=== PATIENT | female | born 1980 | race Caucasian/White ===

== ENCOUNTER 2021-05-21 09:12 | Inpatient (IN) | payer SELFPAY ==
[2021-05-21] MEDS ORDERED: Ondansetron 4 MG/2 ML SDV IVPUSH PRN (09:58)
[2021-05-21] MEDS ORDERED: Sodium Chloride 0.9% 10 ML Syringe FLUSH PRN (09:58)
[2021-05-21] MEDS ORDERED: Nalbuphine 10 MG/1 ML Vial IVPUSH PRN (09:58)
[2021-05-21] MEDS ORDERED: Lactated Ringers 1,000 ML IV SCH (10:00)
[2021-05-21] MEDS ORDERED: Oxytocin/Lactated Ringers 10 UNIT/1,000 ML BAG IV SCH (10:00)
--- NOTE | 2021-05-21 10:50 | PCM.LDHP ---
L&D History of Present Illness - General Date of Service: 05/21/21 Admit Problem/Dx: Patient Status Order with Admit Dx/Problem 05/21/21 09:58 Patient Status [ADT] Routine Admission Diagnosis/Problem Admission Diagnosis/Problem 05/21/21 10:35 Modesta is a 40-year old 8 para 7-0-0-9 (2 sets of twins) female admitted on the a.m. of 05/21/2021 at 39-5/7 weeks gestational age with an ABEL of 2020 by LMP starting 08/16/2020. She began in active labor this a.m. Upon admission she is 7 to 8 cm dilated, 90% effaced, bulging bag of pathak, 0 station, anterior presentation, very soft cervix. Source of Information: Patient History Limitations: Reports: No Limitations - History of Present Illness Introduction:: Modesta is a 40-year old 8 para 7-0-0-9 (2 sets of twins) female admitted on the a.m. of 05/21/2021 at 39-5/7 weeks gestational age with an ABEL of 05/23/2021 by LMP starting 08/16/2020. She began in active labor this a.m. Upon admission she is 7 to 8 cm dilated, 90% effaced, bulging bag of pathak, 0 station, anterior presentation, very soft cervix. Heart tones are reassuring. Contractions every 2 to 3 minutes. Patient desires to do natural labor. She is okay with AROM and this is accomplished with resultant clear amniotic fluid. 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 All babies have been born near term. Ranging from 38-4/7 weeks to 41-0/7 weeks. All baby's been born vaginally. No anesthesia used with any of the labors. history: Patient was first seen at 13-2/7 weeks gestational age and was seen on an occasional basis with the total number of visits at 6. She has had normal vital signs throughout the course. Fundal height growth has been appropriate and weight gain has been approximately 25 to 30 pounds. On last evaluation on 05/11/2021 at 38-2/7 weeks gestational age she was 3.5 cm dilated, 80% effaced, -2 station. Risk factors for the include the following: Grand multiparity, advanced maternal age, history of multiple comorbidities including history of malignant hyperthermia, history of non- Hodgkin's lymphoma status post chemotherapy, lower extremity varicosities, history of allergy to penicillin, history of blood transfusions. Last Tdap on record given 02/11/2019. Laboratory testing in shows blood to be a positive, antibody screen at first visit was negative. First laboratory testing done 11/17/2020 showed a hemoglobin of 13.1 g/dL and platelets at 226,000. She is rubella immune. RPR was nonreactive. IgG and IgM syphilis titers were nonreactive. Hepatitis B surface antigen nonreactive. Second trimester hemoglobin was 12.0 g/dL and platelets were 207,000. Her 1 hour GTT was 112 mg/dL. Antibody screen at that time was negative. Group B strep screen was not detected. Allergies: 1. Iodinated contrast media 2. Penicillin 3. Succinylcholine Medications: 1. vitamins 1 daily Past medical history: 1. Non-Hodgkin's lymphoma 1999treated with chemotherapy 2. History of anemia 3. History of varicose veins 4. History of transfusions 5. History of multiple gestations with vaginal delivery of 9 infants (2 sets of twins) 6. History of malignant hyperthermia 7. History of allergy to penicillin Past surgical history: 1. Laparoscopic [id number] 2. Biopsy lymph node right [id number] 3. Biopsy lymph node left [id number] 4. [id number] as result of reaction to succinylcholine administration with findings consistent with malignant hyperthermia 5. Central line placements [id number] and 1999 Family history: Mother and paternal grandmother had clubfeet. Mother secondary to dementia and specifically to a cerebral hemorrhage secondary to a fall. Father is alive but has some heart issues in his 70s. Siblings are alive and well. All grandparents are secondary to blood vessel and heart disease. No other family members with history of malignant hyperthermia. No related problems, asthma noted in the family. Social history: Patient is . is Robby. 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 Modesta is a vhaz-[id number] mom. They live in [place], [place]. She does not use any significance alcohol, drugs or tobacco. Review of systems: Review of systems: In general patient has contractions but appears to be tolerating them very well. She chooses to natural childbirth. Baby has been active. Skin: Negative Lungs: No infectious symptoms or shortness of breath Cardiovascular: No chest pain or exercise intolerance Breasts: No lumps, changes in size, pain, dimpling, discharge or axillary or supraclavicular concerns. GI: Negative : Changes associated with . Musculoskeletal: Negative Neurological: Negative Physical exam: In general the patient is well-developed, well-nourished, pleasant female of stated age in no acute distress. Skin is warm dry without lesions. HEENT, neck and back within normal limits. Lungs are clear with good breath sounds in all lung leon. Cardiovascular exam shows regular and rhythm without murmurs. Abdomen is gravid with last fundal height in clinic at 38 cm with baby in vertex presentation.. Genital per digital exam shows 78 cm, 90% effaced, 0 station, very soft, anterior, cephalic presentationAROM with clear amniotic fluid resulting.. Extremities and neurological exam are grossly within normal limits. - Related Data Allergies/Adverse Reactions: Allergies Allergy/AdvReac Type Severity Reaction Status Date / Time Iodinated Contrast Media Allergy Unknown Hives Verified 05/21/21 09:56 Penicillins Allergy Unknown Hives Verified 05/21/21 09:56 succinylcholine Allergy Unknown Other Verified 05/21/21 09:56 Home Medications: Home Meds Pnv with Ca,No.71/Iron/Fa [ Vitamin Tablet] 1 each PO DAILY 08/03/14 [History] Calcium Carbonate [Tums] 500 mg PO 05/15/19 [History] Acetaminophen [Tylenol] 650 mg PO Q6H PRN tablet 05/16/19 [Rx] Benzocaine/Menthol [Dermoplast Pain Relief [place]] 1 spray TOP ASDIRECTED PRN canister 05/16/19 [Rx] Docusate Sodium [Colace] 100 mg PO BID PRN cap 05/16/19 [Rx] Hydrocortisone Acetate [Anucort-HC] 25 mg RECTAL BID PRN supp 05/16/19 [Rx] Ibuprofen [Motrin] 600 mg PO Q6H PRN tablet 05/16/19 [Rx] Lanolin [Lansinoh HPA] 1 applic TOP ASDIRECTED PRN tube 05/16/19 [Rx] witch Jeet [Tucks] 1 pad TOP ASDIRECTED PRN pad 07/21/19 [Rx] Past Medical History HEENT History: Reports: None Cardiovascular History: Reports: None Respiratory History: Reports: None Gastrointestinal History: Reports: None Genitourinary History: Reports: None ASSISTANT TEACHING PROFESSOR History: Reports: None Musculoskeletal History: Reports: None Neurological History: Reports: None Psychiatric History: Reports: None Endocrine/Metabolic History: Reports: None Oncologic (Cancer) History: Reports: Non-Hodgkin's Lymphoma Other Oncologic History: Non-Hodgkins Lymphoma in 1998 Dermatologic History: Reports: Other (See Below) Other Dermatologic History: Vericose Veins - Past Surgical History Head Surgeries/Procedures: Reports: None Social & Family History - Family History Family Medical History: No Pertinent Family History - Living Situation & Occupation Living situation: Reports: , with Spouse H&P Review of Systems - Review of Systems: Review Of Systems: See Below L&D Exam - Exam Exam: See Below - Vital Signs Weight: 78.426 kg - Problem List (1) Supervision of high-risk with grand multiparity SNOMED Code(s): 787443310, 726167003, 011332968 ICD Code: O09.40 - SUPERVISION OF W GRAND MULTIPARITY, UNSP TRIMESTER Status: Acute Current Visit: Yes (2) Advanced maternal age in multigravida SNOMED Code(s): 638895722 ICD Code: O09.529 - SUPERVISION OF ELDERLY MULTIGRAVIDA, UNSPECIFIED TRIMESTER Status: Acute Current Visit: No (3) History of malignant hyperthermia SNOMED Code(s): 661457732, 411990762 ICD Code: Z87.898 - PERSONAL HISTORY OF OTHER SPECIFIED CONDITIONS Status: Acute Current Visit: No (4) History of non-Hodgkin's lymphoma SNOMED Code(s): 387967335 ICD Code: Z85.72 - PERSONAL HISTORY OF NON-HODGKIN LYMPHOMAS Status: Acute Current Visit: No (5) Varicose veins during , antepartum SNOMED Code(s): 379778162, 731901883 ICD Code: O22.00 - VARICOSE VEINS OF LOW EXTRM IN , UNSP TRIMESTER Status: Acute Current Visit: Yes (6) Anemia affecting SNOMED Code(s): 22740517 ICD Code: O99.019 - ANEMIA COMPLICATING , UNSPECIFIED TRIMESTER Status: Acute Current Visit: Yes Problem List Initiated/Reviewed/Updated: Yes Orders Last 24hrs: Active Orders 24 hr Category Date Time Status Patient Status [ADT] Routine ADT 05/21/21 09:58 Active Activity as Tolerated [RC] PFP Care 05/21/21 09:58 Active Communication Order [RC] ASDIRECTED Care 05/21/21 09:58 Active Heart Tones [RC] ASDIRECTED Care 05/21/21 09:58 Active Non Stress Test [RC] PER UNIT ROUTINE Care 05/21/21 09:58 Active Notify Provider [RC] PFP Care 05/21/21 09:58 Active Notify Provider [RC] PRN Care 05/21/21 09:58 Active Peripheral IV Care [RC] . DIRECTED Care 05/21/21 09:58 Active Vital Signs [RC] PER UNIT ROUTINE Care 05/21/21 09:58 Active Regular Diet [DIET] Diet 05/21/21 Lunch Active CBC WITH AUTO DIFF [HEME] Stat Lab 05/21/21 09:58 Ordered CORONAVIRUS COVID-19 LORRI [MOLEC] Stat Lab 05/21/21 10:00 Ordered HEP C VIRUS AB [REF] Stat Lab 05/21/21 10:00 Ordered RAPID PLASMA REAGIN,RPR [CHEM] Routine Lab 05/21/21 09:58 Ordered TYPE AND SCREEN [BBK] Stat Lab 05/21/21 09:58 Ordered Lactated Ringers [Ringers, Lactated] 1,000 ml Med 05/21/21 10:00 Active IV ASDIRECTED Lidocaine 1% [Xylocaine 1%] Med 05/21/21 11:00 Once 50 ml INJECT ONETIME ONE Nalbuphine [Nubain] Med 05/21/21 09:58 Active 10 mg IVPUSH Q2H PRN Ondansetron [Zofran] Med 05/21/21 09:58 Active 4 mg IVPUSH Q4H PRN Oxytocin/Lactated Ringers [Pitocin in LR 10 Units/1,000 Med 05/21/21 10:00 Active ML] 10 unit in 1,000 ml IV .CONTINUOUS Sodium Chloride 0.9% [Saline Flush] Med 05/21/21 09:58 Active 10 ml FLUSH ASDIRECTED PRN Electronic Heart Tones Ext w TOCO [WOMSER] Oth 05/21/21 09:58 Ordered Routine Electronic Heart Tones Internal [WOMSER] Per Unit Oth 05/21/21 09:58 Ordered Routine Peripheral IV Insertion Adult [OM.PC] Routine Oth 05/21/21 09:58 Ordered Resuscitation Status Routine Resus Stat 05/21/21 09:58 Ordered Medication Orders Oxytocin/Lactated Ringer's (Pitocin In Lr 10 Units/1,000 Ml) 10 unit in 1,000 mls @ 500 mls/hr IV .CONTINUOUS GENNA Lactated Ringer's (Ringers, Lactated) 1,000 mls @ 100 mls/hr IV ASDIRECTED GENNA Lidocaine HCl (Lidocaine 1% 50 Ml Mdv) 50 ml INJECT ONETIME ONE Stop: 05/21/21 11:01 Nalbuphine HCl (Nalbuphine 10 Mg/1 Ml Vial) 10 mg IVPUSH Q2H PRN PRN Reason: Pain Ondansetron HCl (Ondansetron 4 Mg/2 Ml Sdv) 4 mg IVPUSH Q4H PRN PRN Reason: Nausea/Vomiting Sodium Chloride (Sodium Chloride 0.9% 10 Ml Syringe) 10 ml FLUSH ASDIRECTED PRN PRN Reason: Keep Vein Open Assessment/Plan Comment:: 1. Modesta is a 40-year old 8 para 7-0-0-9 (2 sets of twins) female admitted on the a.m. of 05/21/2021 at 39-5/7 weeks gestational age with an ABEL of 05/23/2021 by LMP starting 08/16/2020. She began in active labor this a.m. Upon admission she is 7 to 8 cm dilated, 90% effaced, bulging bag of pathak, 0 station, anterior presentation, very soft cervix. 2. Group B strep screen negative 3. Patient plans to breast-feed 4. Patient desires natural labor. 5. History of multiple comorbidities including the following: Non-Hodgkin's lymphoma 1999treated with chemotherapy; History of anemia; History of varicose veins; History of transfusions; History of multiple gestations with vaginal delivery of 9 infants (2 sets of twins); History of malignant hyperthermia; History of allergy to penicillin Plan: 1. Anticipate 2. Anesthesias been informed of patient's history of malignant hyperthermia 3. Support breast-feeding decision 4. Closely monitor heart tones and labor progression 5. Admission labs consist of Covid19, RPR, CBC.
[2021-05-21] MEDS ORDERED: Lidocaine 1% 50 ML MDV INJECT ONE (11:00)
[2021-05-21] MEDS ORDERED: Docusate Sodium 100 MG Cap PO PRN (13:46)
[2021-05-21] MEDS ORDERED: Ibuprofen 600 MG Tab PO PRN (13:46)
[2021-05-21] MEDS ORDERED: Acetaminophen 325 MG Tab PO PRN (13:46)
[2021-05-21] MEDS ORDERED: Witch Hazel Medicated Pads 40/Jar TOP PRN (13:46)
[2021-05-21] MEDS ORDERED: Benzocaine/Menthol 20%-0.5% Spray 56 GM Canister TOP PRN (13:46)
--- NOTE | 2021-05-21 13:48 | PCM.SN.2 ---
- Free Text/Narrative Note: Delivery note: Stage I: Modesta is a 40-year old 8 para 7-0-0-9 (2 sets of twins) female admitted on the a.m. of 05/21/2021 at 39-5/7 weeks gestational age with an ABEL of 05/23/2021 by LMP starting 08/16/2020. Patient came in was at advanced cervical dilation of 7 to 8 cm, 80-90% effaced with bulging bag pathak. She wanted to do natural labor therefore was allowed to remain intact for short period time but then decided on pursuing AROM which was done resulting in clear amniotic fluid. She progressed to complete cervical dilation by approximately 1140 hours on 05/21/2021. No analgesia was used. heart tones reassuring. Labor pattern normal. Stage II: Modesta delivered a viable, bazan, female infant with Apgars of 8 and 9, a weight of, length of, in a direct occiput anterior position at 1145 hrs. on 05/21/2021.. The shoulders were delivered with gentle downward and then upward traction. The baby was placed on mom's abdomen. She was dried with warm blanket and nose and mouth were bulb suction. Pitocin was started at 500 cc an hour with 10 units in a liter concentration. This to facilitate increase in uterine tone and decrease likelihood of bleeding. Umbilical cord was allowed to pulsate x3 minutes. Is then clamped and then cut by the baby's father. The cord had 3 vessels. Cord blood was obtained. Perineum was intact. Should be noted patient has significant relaxation of the form of at least a grade 2 cystocele and grade 3 rectocele with a gaping introitus secondary to her grand multiparous status. Stage III: The placenta delivered at 1151 hrs. It delivered in a Johnston presentation, appeared intact and complete and was discarded per patient desire. Estimated blood loss was 100 cc. Patient plans to breast-feed. Condition: Good.
[2021-05-22] MEDS ORDERED: Prenatal Multivitamin with Calcium/Folic Acid/Iron Tab PO SCH (09:00)
--- NOTE | 2021-05-22 09:15 | PCM.DCSUM1 ---
Discharge Summary - Hospital Course Diagnosis: Stroke: No - Discharge Data Discharge Date: 05/22/21 Discharge Disposition: Admitted As Inpatient 65 Condition: Good - Referral to Home Health Primary Care Physician: Sue Martinez MD - Patient Summary/Data Hospital Course: Stage I: Modesta is a 40-year old 8 para 7-0-0-9 (2 sets of twins) female admitted on the a.m. of 05/21/2021 at 39-5/7 weeks gestational age with an ABEL of 05/23/2021 by LMP starting 08/16/2020. Patient came in was at advanced cervical dilation of 7 to 8 cm, 80-90% effaced with bulging bag pathak. She wanted to do natural labor therefore was allowed to remain intact for short period time but then decided on pursuing AROM which was done resulting in clear amniotic fluid. She progressed to complete cervical dilation by approximately 1140 hours on 05/21/2021. No analgesia was used. heart tones reassuring. Labor pattern normal. Stage II: Modesta delivered a viable, bazna, female infant with Apgars of 8 and 9, a weight of, length of, in a direct occiput anterior position at 1145 hrs. on 05/21/2021.. The shoulders were delivered with gentle downward and then upward traction. The baby was placed on mom's abdomen. She was dried with warm blanket and nose and mouth were bulb suction. Pitocin was started at 500 cc an hour with 10 units in a liter concentration. This to facilitate increase in uterine tone and decrease likelihood of bleeding. Umbilical cord was allowed to pulsate x3 minutes. Is then clamped and then cut by the baby's father. The cord had 3 vessels. Cord blood was obtained. Perineum was intact. Should be noted patient has significant relaxation of the form of at least a grade 2 cystocele and grade 3 rectocele with a gaping introitus secondary to her grand multiparous status. Stage III: The placenta delivered at 1151 hrs. It delivered in a Johnston presentation, appeared intact and complete and was discarded per patient desire. Estimated blood loss was 100 cc. Patient plans to breast-feed. Condition: Good. - Patient Instructions Diet: Usual Diet as Tolerated Activity: No Strenuous Activities Driving: May Drive Today Showering/Bathing: May Shower Notify Provider of: Fever, Increased Pain, Swelling and Redness, Drainage, Nausea and/or Vomiting - Discharge Plan *PRESCRIPTION DRUG MONITORING PROGRAM REVIEWED*: No *COPY OF PRESCRIPTION DRUG MONITORING REPORT IN PATIENT CARLITOS: No Home Medications: Home Meds Pnv with Ca,No.71/Iron/Fa [ Vitamin Tablet] 1 each PO DAILY 08/03/14 [History] Calcium Carbonate [Tums] 200 mg PO ASDIRECTED PRN 05/21/21 [History] Referrals: Sue Martinez MD [Primary Care Provider] - (2 weeks) - Discharge Summary/Plan Comment DC Time >30 min.: No - General Info Date of Service: 05/22/21 Functional Status: Reports: Pain Controlled - Review of Systems General: Reports: No Symptoms HEENT: Reports: No Symptoms Pulmonary: Reports: No Symptoms Cardiovascular: Reports: No Symptoms Gastrointestinal: Reports: No Symptoms Genitourinary: Reports: No Symptoms Musculoskeletal: Reports: No Symptoms Skin: Reports: No Symptoms Neurological: Reports: No Symptoms Psychiatric: Reports: No Symptoms - Patient Data Vitals - Most Recent: Last Vital Signs Temp 36.5 C 05/22/21 05:03 Pulse 62 05/22/21 05:03 Resp 14 05/22/21 05:03 BP 101/70 05/22/21 05:03 Pulse Ox 95 05/22/21 05:03 Weight - Most Recent: 78.426 kg Lab Results - Last 24 hrs: Laboratory Results - last 24 hr 05/21/21 05/21/21 05/21/21 Range/Units 09:52 11:01 11:01 WBC 9.70 (3.98-10.04) K/mm3 RBC 3.86 L (3.98-5.22) M/mm3 Hgb 12.6 (11.2-15.7) gm/dl Hct 37.2 (34.1-44.9) % MCV 96.4 H (79.4-94.8) fl MCH 32.6 H (25.6-32.2) pg MCHC 33.9 (32.2-35.5) g/dl RDW Std Deviation 46.7 H (36.4-46.3) fL Plt Count 188 (182-369) K/mm3 MPV 9.8 (9.4-12.3) fl Neut % (Auto) 74.9 H (34.0-71.1) % Lymph % (Auto) 12.8 L (19.3-51.7) % [place] % (Auto) 7.2 (4.7-12.5) % Eos % (Auto) 4.6 (0.7-5.8) Baso % (Auto) 0.3 (0.1-1.2) % Neut # (Auto) 7.26 H (1.56-6.13) K/mm3 Lymph # (Auto) 1.24 (1.18-3.74) K/mm3 [place] # (Auto) 0.70 H (0.24-0.36) K/mm3 Eos # (Auto) 0.45 H (0.04-0.36) K/mm3 Baso # (Auto) 0.03 (0.01-0.08) K/mm3 RPR Non-reactive (NONREACTIVE) SARS-CoV-2 RNA (LORRI) Negative (NEGATIVE) Blood Type Gel Antibody Screen 05/21/21 Range/Units 11:01 WBC (3.98-10.04) K/mm3 RBC (3.98-5.22) M/mm3 Hgb (11.2-15.7) gm/dl Hct (34.1-44.9) % MCV (79.4-94.8) fl MCH (25.6-32.2) pg MCHC (32.2-35.5) g/dl RDW Std Deviation (36.4-46.3) fL Plt Count (182-369) K/mm3 MPV (9.4-12.3) fl Neut % (Auto) (34.0-71.1) % Lymph % (Auto) (19.3-51.7) % [place] % (Auto) (4.7-12.5) % Eos % (Auto) (0.7-5.8) Baso % (Auto) (0.1-1.2) % Neut # (Auto) (1.56-6.13) K/mm3 Lymph # (Auto) (1.18-3.74) K/mm3 [place] # (Auto) (0.24-0.36) K/mm3 Eos # (Auto) (0.04-0.36) K/mm3 Baso # (Auto) (0.01-0.08) K/mm3 RPR (NONREACTIVE) SARS-CoV-2 RNA (LORRI) (NEGATIVE) Blood Type A POSITIVE Gel Antibody Screen Negative Med Orders - Current: Current Medications Acetaminophen (Acetaminophen 325 Mg Tab) 650 mg PO Q4H PRN PRN Reason: mild pain or fever Benzocaine/Menthol (Benzocaine/Menthol 20%-0.5% [place] 56 Gm Canister) 0 gm TOP ASDIRECTED PRN PRN Reason: Perineal Comfort Measure Docusate Sodium (Docusate Sodium 100 Mg Cap) 100 mg PO BID PRN PRN Reason: Constipation Ibuprofen (Ibuprofen 600 Mg Tab) 600 mg PO Q4H PRN PRN Reason: Mild pain or fever Prenat Multivit/[place]/Iron/Folic Ac ( Multivitamin With Calcium/Folic Acid/Iron Tab) 1 each PO DAILY GENNA Witch Vivien (Witch Vivien Medicated Pads 40/Jar) 1 pad TOP ASDIRECTED PRN PRN Reason: Perineal Comfort Measure Discontinued Medications Oxytocin/Lactated Ringer's (Pitocin In Lr 10 Units/1,000 Ml) 10 unit in 1,000 mls @ 500 mls/hr IV .CONTINUOUS GENNA Last Infusion: 05/21/21 12:30 Dose: 500 mls/hr Documented by: Lactated Ringer's (Ringers, Lactated) 1,000 mls @ 100 mls/hr IV ASDIRECTED GENNA Lidocaine HCl (Lidocaine 1% 50 Ml Mdv) 50 ml INJECT ONETIME ONE Stop: 05/21/21 11:01 Nalbuphine HCl (Nalbuphine 10 Mg/1 Ml Vial) 10 mg IVPUSH Q2H PRN PRN Reason: Pain Ondansetron HCl (Ondansetron 4 Mg/2 Ml Sdv) 4 mg IVPUSH Q4H PRN PRN Reason: Nausea/Vomiting Sodium Chloride (Sodium Chloride 0.9% 10 Ml Syringe) 10 ml FLUSH ASDIRECTED PRN PRN Reason: Keep Vein Open - Exam General: Reports: Alert, Oriented HEENT: Reports: Pupils Equal, Pupils Reactive, EOMI, Mucous Membr. Moist/Sweetser Neck: Reports: Supple Lungs: Reports: Clear to Auscultation, Normal Respiratory Effort Cardiovascular: Reports: Regular Rate, Regular Rhythm GI/Abdominal Exam: Normal Bowel Sounds, Soft, Non-Tender, No Organomegaly, No Distention, No Abnormal Bruit, No Mass, Pelvis Stable Rectal (Female) Exam: Normal Exam Back Exam: Reports: Normal Inspection, Full Range of Motion Extremities: Normal Inspection, Normal Range of Motion, Non-Tender, No Pedal Edema, Normal Capillary Refill Skin: Reports: Warm, Dry, Intact Neurological: Reports: No New Focal Deficit Psy/Mental Status: Reports: Alert, Normal Affect, Normal Mood
[2021-05-22 09:40] VITALS: BP 104/71; PULSE 77
== END 2021-05-22 13:20 | disposition home or self-care (01) | DRG 807 ==
LOC: JD.OB 09:12 → JD.OBCHECK 09:12 → JD.OB 09:58 → OBSVTOIN 11:45 → JD.OB 11:46
PROVIDERS: ADMIT Obstetrics & Gynecology; ATTEND Obstetrics & Gynecology
PROC: 10E0XZZ Delivery of Products of Conception, External Approach (ICD-10-PCS; principal; 2021-05-21)
PROC: 10907ZC Drainage of Amniotic Fluid, Therapeutic from Products of Conception, Via Natural or Artificial Opening (ICD-10-PCS; 2021-05-21)
DX: O80 Encounter for full-term uncomplicated delivery (principal); Z37.0 Single live birth; Z3A.39 39 weeks gestation of pregnancy; Z20.822 Contact with and (suspected) exposure to COVID-19
CPT/HCPCS: 36415; 59025; 59409; 85025; 86592; 86803; 86850; 86900; 86901; J2590; U0002